=== PATIENT | female | born 1965 | race Caucasian/White ===

== ENCOUNTER → 2016-09-26 | Outpatient (CLI) | payer MEDICAID, BC ==
[2016-09-26 10:52] LABS: CH 30.8; HCT 39.9 % (34.0-46.0); HDW 2.13; HGB 13.1 gm/dL (11.4-16.0); MCH 30.6 pg (25.0-35.0); MCHC 32.7 g/dL (31.0-37.0); MCV 93.7 fL (80.0-100.0); Mean Platelet Volume 7.4; RBC 4.26 m/uL (3.80-5.40); RDW 12.8 % (11.5-15.5); WBC 6.9 k/uL (3.8-10.6)
[2016-09-26 11:22] LABS: ALT 36 U/L (9-52); AST 29 U/L (14-36); Alkaline Phosphatase 47 U/L (38-126); Anion Gap 13 mmol/L; Blood Urea Nitrogen 22 mg/dL (7-17); Calcium 9.9 mg/dL (8.4-10.2); Carbon Dioxide 25 mmol/L (22-30); Chloride 104 mmol/L (98-107); Cholesterol 190 mg/dL (<200); Glucose 83 mg/dL (74-99); HDL Cholesterol 60 mg/dL (40-60); Non-African American GFR(MDRD) >60 (>60 ml/min/1.73 sqM); Potassium 4.7 mmol/L (3.5-5.1); Sodium 142 mmol/L (137-145); Total Bilirubin 0.5 mg/dL (0.2-1.3); Total Protein 7.7 g/dL (6.3-8.2); Triglycerides 162 mg/dL (<150); Uric Acid 3.7 mg/dL (3.7-7.4)
== END | disposition home or self-care (01) ==
LOC: LABWHC1 09:08
PROVIDERS: ATTEND Family Medicine
DX: Z00.00 Encounter for general adult medical examination without abnormal findings (principal); E78.00 Pure hypercholesterolemia, unspecified; I10 Essential (primary) hypertension; M10.9 Gout, unspecified
CPT/HCPCS: 36415; 80053; 80061; 84550; 85027

== ENCOUNTER → 2016-10-19 | Outpatient (CLI) | payer MEDICAID, BC ==
--- NOTE | 2016-10-23 07:31 | MM ---
Reason for exam: screening (asymptomatic). Last mammogram was performed 1 year and 2 months ago. History: Took hormonal contraceptives for 26 years beginning at age 16. Physical Findings: A clinical breast exam by your physician is recommended on an annual basis and results should be correlated with mammographic findings. MG 3D Screening Mammo W/Cad Bilateral CC and MLO view(s) were taken. Prior study comparison: August 17, 2015, bilateral MG 3d screening mammo w/cad. November 17, 2010, bilateral digital screening mammo w/CAD. The breast tissue is heterogeneously dense. This may lower the sensitivity of mammography. Nodular asymmetry incompletely disperses anterior upper outer quadrant right breast. ASSESSMENT: Incomplete: need additional imaging evaluation, BI-RAD 0 RECOMMENDATION: Special view mammogram of the right breast. If lesion persists on supplemental views, image directed ultrasound is recommended. [facility] will attempt to contact patient to return for supplemental views and ultrasound if indicated.
== END | disposition home or self-care (01) ==
LOC: RADMAMWWP 06:59
PROVIDERS: ATTEND Family Medicine
DX: Z12.31 Encounter for screening mammogram for malignant neoplasm of breast (principal)
CPT/HCPCS: 77063; G0202

== ENCOUNTER → 2016-10-27 | Outpatient (CLI) | payer MEDICAID, BC ==
--- NOTE | 2016-10-27 08:42 | MM ---
Reason for exam: additional evaluation requested from abnormal screening. Last mammogram was performed less than 1 month ago. History: Took hormonal contraceptives for 26 years beginning at age 16. Physical Findings: Nurse did not find any significant physical abnormalities on exam. MG 3D Work Up W/Cad RT ML, spot compression CC, and spot compression MLO view(s) were taken of the right breast. Prior study comparison: October 19, 2016, bilateral MG 3d screening mammo w/cad. August 17, 2015, bilateral MG 3d screening mammo w/cad. There are scattered fibroglandular densities. No significant new findings when compared with previous films. These results were verbally communicated with the patient and result sheet given to the patient on 10/27/16. ASSESSMENT: Incomplete: need additional imaging evaluation, BI-RAD 0 RECOMMENDATION: Ultrasound of the right breast. (upper outer quadrant)
--- NOTE | 2016-10-27 08:44 | USB ---
Reason for exam: additional evaluation requested from abnormal screening. History: Took hormonal contraceptives for 26 years beginning at age 16. US Breast Workup Limited RT Right breast ultrasound demonstates no cystic or solid lesion seen. These results were verbally communicated with the patient and result sheet given to the patient on 10/27/16. ASSESSMENT: Negative, BI-RAD 1 RECOMMENDATION: Return to routine screening mammogram schedule for both breasts.
== END | disposition home or self-care (01) ==
LOC: RADMAMWWP 07:00
PROVIDERS: ATTEND Family Medicine
DX: R92.8 Other abnormal and inconclusive findings on diagnostic imaging of breast (principal)
CPT/HCPCS: 76642; G0206; G0279

== ENCOUNTER 2018-04-20 15:56 | Observation (INO) | payer MEDICAID, BC ==
[2018-04-20] MEDS ORDERED: ASPIRIN 81 MG PO STA (16:08)
[2018-04-20] MEDS ORDERED: NITROGLYCERIN OINT 1 INCH/GM PACKET TOPICAL STA (16:08)
--- NOTE | 2018-04-20 16:10 | ED ---
General Adult HPI - General Chief complaint: Chest Pain Stated complaint: Chest Pain Time Seen by Provider: 04/20/18 16:00 Source: patient, RN notes reviewed Mode of arrival: wheelchair Limitations: no limitations - History of Present Illness Initial comments: This is a 52-year-old female with past medical history significant for high blood pressure and high cholesterol. Patient also has a family history of heart disease. Patient states about an hour and a half ago she was watching some men do some work in her yard when she started having central chest pain which radiates to her back. Patient states she was not short of breath but she was mildly nauseated when it happened. Patient denies any diaphoresis. Patient denies any episode similar to this in the past. Patient denies headache patient denies numbness weakness. Patient denies any lightheadedness dizziness or near syncopal episode. Patient denies any palpitations. Patient states the pain is still there and is a pressure sensation. Patient states pressing on it does not produce the pain. Patient denies any leg edema or calf tenderness. Patient denies any abdominal pain patient denies nausea vomiting or diarrhea. - Related Data Home Medications Medication Instructions Recorded Confirmed Aspirin 81 mg PO DAILY 09/20/15 04/20/18 Lisinopril [Zestril] 20 mg PO BID 09/20/15 04/20/18 Multivitamins, Thera [Multivitamin] 1 tab PO DAILY 09/20/15 04/20/18 Simvastatin [Zocor] 20 mg PO HS 09/20/15 04/20/18 Naproxen Sodium [Aleve] 220 mg PO DAILY 04/20/18 04/20/18 Allergies Allergy/AdvReac Type Severity Reaction Status Date / Time No Known Allergies Allergy Verified 04/20/18 16:05 Review of Systems ROS Statement: Those systems with pertinent positive or pertinent negative responses have been documented in the HPI. ROS Other: All systems not noted in ROS Statement are negative. Past Medical History Past Medical History: Eye Disorder, Hyperlipidemia, Hypertension Additional Past Medical History / Comment(s): OTC GLASSES TO READ ONLY History of Any Multi-Drug Resistant Organisms: None Reported Past Surgical History: No Surgical Hx Reported Past Anesthesia/Blood Transfusion Reactions: No Reported Reaction Past Psychological History: No Psychological Hx Reported Smoking Status: Never smoker Past Alcohol Use History: None Reported Past Drug Use History: None Reported - Past Family History Mother Family Medical History: Cancer, Hyperlipidemia, Hypertension Additional Family Medical History / Comment(s): COLON CA Father Family Medical History: Hyperlipidemia, Hypertension General Exam - General Exam Comments Initial Comments: GENERAL: Patient is well-developed and well-nourished. Patient is nontoxic and well- hydrated and is in mild distress. ENT: Neck is soft and supple. No significant lymphadenopathy is noted. Oropharynx is clear. Moist mucous membranes. Neck has full range of motion without eliciting any pain. EYES: The sclera were anicteric and conjunctiva were pink and moist. Extraocular movements were intact and pupils were equal round and reactive to light. Eyelids were unremarkable. PULMONARY: Unlabored respirations. Good breath sounds bilaterally. No audible rales rhonchi or wheezing was noted. CARDIOVASCULAR: There is a regular rate and rhythm without any murmurs gallops or rubs. ABDOMEN: Soft and nontender with normal bowel sounds. No palpable organomegaly was noted. There is no palpable pulsatile mass. SKIN: Skin is clear with no lesions or rashes and otherwise unremarkable. NEUROLOGIC: Patient is alert and oriented x3. Cranial nerves II through XII are grossly intact. Motor and sensory are also intact. Normal speech, volume and content. Symmetrical smile. MUSCULOSKELETAL: Normal extremities with adequate strength and full range of motion. No lower extremity swelling or edema. No calf tenderness. LYMPHATICS: No significant lymphadenopathy is noted PSYCHIATRIC: Normal psychiatric evaluation. Normal interpersonal interactions appears functionally intact in deals appropriately with others. No signs of depression. No signs of anxiety. Limitations: no limitations Course Vital Signs 04/20/18 04/20/18 04/20/18 15:58 16:59 17:35 Temperature 97.8 F Pulse Rate 91 68 Pulse Rate [ 80 Team Guide ] Respiratory 18 18 Rate Blood Pressure 161/95 131/81 O2 Sat by Pulse 97 98 Oximetry Medical Decision Making - Medical Decision Making EKG shows normal sinus rhythm at 70 bpm DC interval 152 QRS is 74 QT interval 370 QTC is 4:30. Patient's EKG shows no ST segment elevation or depression or T wave abnormalities are noted. Patient got nitroglycerin and aspirin and after that she seemed to feel considerably better. I started a heparin on the patient because of her chest pain which was new to her any radiation of the pain or back. I spoke with Dr. Griggs agreed to admit the patient admitted the patient continued Nitropaste aspirin and heparin on the floor. I consult to cardiology and I wrote the orders. - Lab Data Result diagrams: 04/20/18 16:12 04/20/18 16:12 Lab Results 04/20/18 04/20/18 04/20/18 Range/Units 16:12 16:12 16:12 WBC 8.1 (3.8-10.6) k/uL RBC 4.22 (3.80-5.40) m/uL Hgb 13.1 (11.4-16.0) gm/dL Hct 39.0 (34.0-46.0) % MCV 92.6 (80.0-100.0) fL MCH 31.2 (25.0-35.0) pg MCHC 33.7 (31.0-37.0) g/dL RDW 13.2 (11.5-15.5) % Plt Count 254 (150-450) k/uL Neutrophils % 57 % Lymphocytes % 32 % Monocytes % 5 % Eosinophils % 2 % Basophils % 1 % Neutrophils # 4.6 (1.3-7.7) k/uL Lymphocytes # 2.6 (1.0-4.8) k/uL Monocytes # 0.4 (0-1.0) k/uL Eosinophils # 0.2 (0-0.7) k/uL Basophils # 0.1 (0-0.2) k/uL PT (9.0-12.0) sec INR (<1.2) APTT (22.0-30.0) sec Sodium 137 (137-145) mmol/L Potassium 3.8 (3.5-5.1) mmol/L Chloride 105 (98-107) mmol/L Carbon Dioxide 21 L (22-30) mmol/L Anion Gap 11 mmol/L BUN 23 H (7-17) mg/dL Creatinine 0.81 (0.52-1.04) mg/dL Est GFR (CKD-EPI)AfAm >90 (>60 ml/min/1.73 sqM) Est GFR (CKD-EPI)NonAf 83 (>60 ml/min/1.73 sqM) Glucose 98 (74-99) mg/dL Calcium 10.2 (8.4-10.2) mg/dL Magnesium 1.9 (1.6-2.3) mg/dL Total Bilirubin 0.3 (0.2-1.3) mg/dL AST 39 H (14-36) U/L ALT 45 (9-52) U/L Alkaline Phosphatase 50 (38-126) U/L Total Creatine Kinase 209 H (30-135) U/L CK-MB (CK-2) 1.6 (0.0-2.4) ng/mL CK-MB (CK-2) Rel Index 0.8 Troponin I <0.012 (0.000-0.034) ng/mL Total Protein 7.9 (6.3-8.2) g/dL Albumin 4.8 (3.5-5.0) g/dL 04/20/18 Range/Units 16:12 WBC (3.8-10.6) k/uL RBC (3.80-5.40) m/uL Hgb (11.4-16.0) gm/dL Hct (34.0-46.0) % MCV (80.0-100.0) fL MCH (25.0-35.0) pg MCHC (31.0-37.0) g/dL RDW (11.5-15.5) % Plt Count (150-450) k/uL Neutrophils % % Lymphocytes % % Monocytes % % Eosinophils % % Basophils % % Neutrophils # (1.3-7.7) k/uL Lymphocytes # (1.0-4.8) k/uL Monocytes # (0-1.0) k/uL Eosinophils # (0-0.7) k/uL Basophils # (0-0.2) k/uL PT 9.9 (9.0-12.0) sec INR 1.0 (<1.2) APTT 21.5 L (22.0-30.0) sec Sodium (137-145) mmol/L Potassium (3.5-5.1) mmol/L Chloride (98-107) mmol/L Carbon Dioxide (22-30) mmol/L Anion Gap mmol/L BUN (7-17) mg/dL Creatinine (0.52-1.04) mg/dL Est GFR (CKD-EPI)AfAm (>60 ml/min/1.73 sqM) Est GFR (CKD-EPI)NonAf (>60 ml/min/1.73 sqM) Glucose (74-99) mg/dL Calcium (8.4-10.2) mg/dL Magnesium (1.6-2.3) mg/dL Total Bilirubin (0.2-1.3) mg/dL AST (14-36) U/L ALT (9-52) U/L Alkaline Phosphatase (38-126) U/L Total Creatine Kinase (30-135) U/L CK-MB (CK-2) (0.0-2.4) ng/mL CK-MB (CK-2) Rel Index Troponin I (0.000-0.034) ng/mL Total Protein (6.3-8.2) g/dL Albumin (3.5-5.0) g/dL Critical Care Time Critical Care Time: Yes Total Critical Care Time: 35 Disposition Clinical Impression: Unstable angina pectoris Disposition: ADMITTED IP TO THIS HOSP Referrals: Buck Parmar MD [Primary Care Provider] - 1-2 days Time of Disposition: 17:38
[2018-04-20 16:18] LABS: Basophils # (A) 0.1 k/uL (0-0.2); Basophils % (A) 1 %; Eosinophils # (A) 0.2 k/uL (0-0.7); Eosinophils % (A) 2 %; HGB 13.1 gm/dL (11.4-16.0); Lymphocytes # (A) 2.6 k/uL (1.0-4.8); Lymphocytes % (A) 32 %; MCH 31.2 pg (25.0-35.0); MCHC 33.7 g/dL (31.0-37.0); MCV 92.6 fL (80.0-100.0); Mean Platelet Volume 7.5; Monocytes # (A) 0.4 k/uL (0-1.0); Monocytes % (A) 5 %; Neutrophils # (A) 4.6 k/uL (1.3-7.7); Neutrophils % (A) 57 %; Platelet Count 254 k/uL (150-450); RBC 4.22 m/uL (3.80-5.40); RDW 13.2 % (11.5-15.5); WBC 8.1 k/uL (3.8-10.6)
[2018-04-20 16:29] LABS: ALT 45 U/L (9-52); AST 39 U/L (14-36); Albumin 4.8 g/dL (3.5-5.0); Alkaline Phosphatase 50 U/L (38-126); Anion Gap 11 mmol/L; Blood Urea Nitrogen 23 mg/dL (7-17); Calcium 10.2 mg/dL (8.4-10.2); Carbon Dioxide 21 mmol/L (22-30); Chloride 105 mmol/L (98-107); Glucose 98 mg/dL (74-99); Magnesium 1.9 mg/dL (1.6-2.3); Potassium 3.8 mmol/L (3.5-5.1); Sodium 137 mmol/L (137-145); Total Bilirubin 0.3 mg/dL (0.2-1.3); Total Protein 7.9 g/dL (6.3-8.2)
[2018-04-20 16:35] LABS: Prothrombin Time 9.9 sec (9.0-12.0)
[2018-04-20 16:37] LABS: Partial Thromboplastin Time 21.5 sec (22.0-30.0)
[2018-04-20 16:39] LABS: Creatine Kinase 209 U/L (30-135)
--- NOTE | 2018-04-20 16:50 | XR ---
EXAMINATION TYPE: XR chest 2V DATE OF EXAM: 04/20/2018 COMPARISON: None INDICATION: Chest pain TECHNIQUE: Frontal and lateral views of the chest are obtained. FINDINGS: The heart size is normal. The pulmonary vasculature is normal. There may be a developing right lower lobe infiltrate. Clinical correlation is recommended. IMPRESSION: 1. Suggestion of a developing right lower lobe medial infiltrate with air bronchograms.
[2018-04-20 16:53] LABS: Creatine Kinase MB 1.6 ng/mL (0.0-2.4); Troponin I <0.012 ng/mL (0.000-0.034)
[2018-04-20] MEDS ORDERED: HEPARIN SODIUM,PORCINE 5,000 UNIT/ML 1 ML VIAL IV ONE (17:37)
[2018-04-20] MEDS ORDERED: NITROGLYCERIN SL TABS 0.4 MG TAB SUBLINGUAL PRN (17:39)
[2018-04-20] MEDS ORDERED: HEPARIN SOD,PORK IN 0.45% NACL 25,000 UNIT in 0.45% NACL 1 500ML.BAG IV SCH (17:45)
[2018-04-20] MEDS: NITROGLYCERIN OINT 1 INCH/GM PACKET TOPICAL SCH ×2 (19:26→23:35)
[2018-04-20] MEDS ORDERED: ATORVASTATIN 10 MG TAB PO SCH (21:45)
[2018-04-20] MEDS: LISINOPRIL 20 MG TAB PO SCH (21:47)
[2018-04-20] MEDS: ACETAMINOPHEN TAB 325 MG TAB PO PRN (21:48)
[2018-04-20 22:32] LABS: Creatine Kinase 159 U/L (30-135)
[2018-04-20 22:45] LABS: Troponin I <0.012 ng/mL (0.000-0.034)
[2018-04-21 00:54] LABS: Cholesterol 208 mg/dL (<200); HDL Cholesterol 59 mg/dL (40-60); LDL Cholesterol,Calculated 84 mg/dL (0-99); Triglycerides 324 mg/dL (<150)
[2018-04-21 04:59] LABS: Creatine Kinase 130 U/L (30-135)
[2018-04-21 05:11] LABS: Creatine Kinase MB 0.7 ng/mL (0.0-2.4); Troponin I <0.012 ng/mL (0.000-0.034)
[2018-04-21] MEDS: NITROGLYCERIN OINT 1 INCH/GM PACKET TOPICAL SCH (06:08)
[2018-04-21] MEDS: ACETAMINOPHEN TAB 325 MG TAB PO PRN (07:57)
[2018-04-21] MEDS ORDERED: ASPIRIN 325 MG TAB PO SCH (09:00)
[2018-04-21] MEDS ORDERED: NAPROXEN 250 MG TAB PO SCH (09:00)
[2018-04-21] MEDS: LISINOPRIL 20 MG TAB PO SCH (09:29)
[2018-04-21 09:46] VITALS: RESP 16; TEMP 98.5
--- NOTE | 2018-04-21 10:04 | CONS ---
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 She has hypertension and hyperlipidemia, sees Dr. Buck Parmar as an outpatient. She was standing and watching out the window with her and [id number] doing some work and then she felt midsternal discomfort, burning in nature, sharp, felt uncomfortable and came to the emergency room. Her symptoms have resolved. Troponins are normal. EKG is unremarkable. She is resting comfortably. She has a remote history of some reflux type symptoms. Has not had any previous stress test. She is asymptomatic at the time of my evaluation. The pain was very brief and does not seem anginal. PAST MEDICAL HISTORY: 1. Hypertension. 2. Hyperlipidemia. 3. No evidence of prior myocardial infarction. MEDICATIONS: Include Zocor 20 mg daily, Zestril 20 mg daily, aspirin 81 mg daily. No known drug allergies. PHYSICAL EXAMINATION: Blood pressure is 118/70, pulse rate is 70 per minute regular HEENT: Unremarkable. Fundus was not examined by me. Neck is supple. No JVD. I do not hear a carotid bruit. There is no thyromegaly. Heart exam reveals S1, S2 with a short systolic murmur audible at the base of the heart. No rub, murmur or gallop. Lungs are clear. Abdomen is soft, nontender. Lower extremities reveal normal pulses. No edema. Central nervous system is normal. EKG revealed sinus mechanism, no acute changes. LAB DATA: Revealed unremarkable troponins. IMPRESSION: 1. Atypical chest pain, probably gastroesophageal reflux type symptoms. 2. Hypertension under good control. 3. Hypercholesterolemia under good control with LDL of 84. RECOMMENDATIONS: I believe the pain is atypical but given her risk factors I am recommending that she should have a stress test and echocardiogram as an outpatient. I am recommending that she should have the test next week and gave her a prescription for this. She will have it done here through [facility]. MMODL / IJN: [id number] /
[2018-04-21] MEDS ORDERED: MULTIVITAMINS, THERA 1 EACH TAB PO SCH (12:00)
[2018-04-21 12:09] VITALS: BP 129/86; PULSE 73
--- NOTE | 2018-04-28 13:23 | DS ---
DISCHARGE SUMMARY HISTORY AND PHYSICAL AND DISCHARGE SUMMARY: DATE OF ADMISSION: 04/20/18. DATE LEFT AMA: 04/21/18. HOSPITAL COURSE: This patient presented to the ER with chest pain. When I came to the floor to see the patient, I was informed that the patient left earlier as she did not want to wait to be seen. She was admitted with chest pain. Seen by Dr. Barron Lozada, who ordered an outpatient stress test. The patient was never seen by me, not examined by me. For more details refer to the ER notes and Dr. Christie Lozada's notes. MMODL / IJN: [id number] /
== END 2018-04-21 12:09 | disposition left against medical advice (07) ==
LOC: EC 15:56 → 3OBS 17:42
PROVIDERS: ADMIT Hospitalist; ATTEND Hospitalist
DX: R07.89 Other chest pain (principal); R11.0 Nausea; I10 Essential (primary) hypertension; E78.5 Hyperlipidemia, unspecified; H57.9 Unspecified disorder of eye and adnexa; E78.00 Pure hypercholesterolemia, unspecified; Z79.82 Long term (current) use of aspirin; Z79.1 Long term (current) use of non-steroidal anti-inflammatories (NSAID); Z79.899 Other long term (current) drug therapy; Z80.0 Family history of malignant neoplasm of digestive organs; Z82.49 Family history of ischemic heart disease and other diseases of the circulatory system; Z83.49 Family history of other endocrine, nutritional and metabolic diseases
CPT/HCPCS: 99291 ×2; 96365 ×2; 96376 ×2; 96366 ×2; 36415; 93005; 80061; 80053; 82550 ×2; 82553 ×2; 83735; 84484 ×2; 85025; 85610; 85730 ×2; 71046; G0378 ×2; J1644 ×2

== ENCOUNTER → 2018-05-10 | Outpatient (CLI) | payer MEDICAID, BC ==
--- NOTE | 2018-05-10 11:39 | P.STRESS ---
- Stress Test Note Stress Test Results/Findings: Exam Performed: stress echo exercise Exam Date: 05/10/18 Reason for Exam: MURMUR Height: 5 ft 2 in Weight: 70.307 kg Protocol: LAINA Stage: 3 Duration of Exercise: 7:00 Resting Heart Rate: 74 Resting Blood Pressure: 122/76 Maximum Achieved Heart Rate: 156 Maximum Achieved Blood Pressure: 159/64 85% PMHR: 141 100% PMHR: 166 METS: 8.5 Technologist Comment: Stress Test Results/Findings: This is a 52-year-old female with history of hypertension, hypercholesterolemia and family history of ischemic heart disease being evaluated for cardiac status. Stress data: Baseline EKG showed sinus rhythm with normal AZ interval, QRS duration. Blood pressure at rest is 120/76 with pulse rate of 74. Patient walked on the Laina protocol for 7 minutes achieving a max pocket of 156 with blood pressure 159/64. EKGs taken during and after exercise did not reveal any significant changes from the baseline. Echo data: Baseline echo images showed normal wall motion and thickening. Exercise echo images showed augmentation of the wall motion and thickening in all the segments. Final impression: #1. Negative stress test #2. Negative stress echo.
--- NOTE | 2018-05-10 11:42 | ECHOF ---
Referral Reason:R01.01 Atypical chest pain MEASUREMENTS -------- HEIGHT: 157.5 cm WEIGHT: 70.3 kg BP: 108/67 RVIDd: 2.2 cm (< 3.3) IVSd: 0.9 cm (0.6 - 1.1) LVIDd: 4.5 cm (3.9 - 5.3) LVPWd: 0.8 cm (0.6 - 1.1) IVSs: 1.4 cm LVIDs: 2.6 cm LVPWs: 1.3 cm LA Diam: 3.3 cm (2.7 - 3.8) LAESV Index (A-L): 20.12 ml/m Ao Diam: 2.8 cm (2.0 - 3.7) AV Cusp: 1.9 cm (1.5 - 2.6) MV EXCURSION: 21.150 mm (> 18.000) MV EF SLOPE: 112 mm/s (70 - 150) EPSS: 0.8 cm MV E Kofi: 1.05 m/s MV DecT: 223 ms MV A Kofi: 0.73 m/s MV E/A Ratio: 1.43 RAP: 5.00 mmHg RVSP: 33.03 mmHg FINDINGS -------- Sinus rhythm. This was a technically good study. The left ventricular size is normal. Left ventricular wall thickness is normal. Overall left vent ricular systolic function is normal with, an EF between 60 - 65 %. The right ventricle is normal in size. Normal LA size by volume 22+/-6 ml/m2. The right atrium is normal in size. The aortic valve is trileaflet and appears structurally normal. The mitral valve is normal. Mild tricuspid regurgitation present. There is borderline pulmonary hypertension. The right ventr icular systolic pressure, as measured by Doppler, is 33.03mmHg. Trace/mild (physiologic) pulmonic regurgitation. The aortic root size is normal. Normal inferior vena cava with normal inspiratory collapse consistent with estimated right atrial pre ssure of 5 mmHg. There is no pericardial effusion. CONCLUSIONS -------- 1. Sinus rhythm. 2. This was a technically good study. 3. The left ventricular size is normal. 4. Left ventricular wall thickness is normal. 5. Overall left ventricular systolic function is normal with, an EF between 60 - 65 %. 6. The right ventricle is normal in size. 7. Normal LA size by volume 22+/-6 ml/m2. 8. The right atrium is normal in size. 9. The aortic valve is trileaflet and appears structurally normal. 10. The mitral valve is normal. 11. Mild tricuspid regurgitation present. 12. There is borderline pulmonary hypertension. 13. The right ventricular systolic pressure, as measured by Doppler, is 33.03mmHg. 14. Trace/mild (physiologic) pulmonic regurgitation. 15. The aortic root size is normal. 16. Normal inferior vena cava with normal inspiratory collapse consistent with estimated right atrial pressure of 5 mmHg. 17. There is no pericardial effusion. [employer]: Angélica Major RDCS
== END ==
LOC: RADNMMAIN 10:31
PROVIDERS: ATTEND Internal Medicine Interventional Cardiology
DX: I07.1 Rheumatic tricuspid insufficiency (principal); I37.1 Nonrheumatic pulmonary valve insufficiency; I27.20 Pulmonary hypertension, unspecified; R01.1 Cardiac murmur, unspecified
CPT/HCPCS: 93306; 93351

== ENCOUNTER → 2018-06-03 | Outpatient (CLI) | payer MEDICAID, BC ==
--- NOTE | 2018-06-04 13:46 | MM ---
Reason for exam: screening (asymptomatic). Last mammogram was performed 1 year and 7 months ago. History: Took hormonal contraceptives for 26 years beginning at age 16. Physical Findings: A clinical breast exam by your physician is recommended on an annual basis and results should be correlated with mammographic findings. MG 3D Screening Mammo W/Cad Bilateral CC and MLO view(s) were taken. Prior study comparison: October 27, 2016, right breast MG 3d work up w/cad RT. October 19, 2016, bilateral MG 3d screening mammo w/cad. The breast tissue is heterogeneously dense. This may lower the sensitivity of mammography. No suspicious abnormality. No significant changes when compared with prior studies. ASSESSMENT: Negative, BI-RAD 1 RECOMMENDATION: Routine screening mammogram of both breasts in 1 year.
== END ==
LOC: RADMAMWWP 07:12
PROVIDERS: ATTEND Family Medicine
DX: Z12.31 Encounter for screening mammogram for malignant neoplasm of breast (principal)
CPT/HCPCS: 77063; 77067

== ENCOUNTER → 2019-06-12 | Outpatient (CLI) | payer BC ==
[2019-06-12 08:17] LABS: HCT 36.1 % (34.0-46.0); HGB 12.1 gm/dL (11.4-16.0); MCH 31.5 pg (25.0-35.0); MCHC 33.5 g/dL (31.0-37.0); MCV 93.9 fL (80.0-100.0); Mean Platelet Volume 7.2; Platelet Count 234 k/uL (150-450); RBC 3.85 m/uL (3.80-5.40); RDW 13.2 % (11.5-15.5); WBC 6.1 k/uL (3.8-10.6)
[2019-06-12 12:15] LABS: African American GFR (CKD) 83.4 (60.0-200.0); Albumin 4.7 g/dL (3.80-4.90); Albumin/Globulin Ratio 2.47 (1.60-3.17); Anion Gap 8.9 mmol/L (4.00-12.00); BUN/Creat Ratio 24.44 Ratio (12.00-20.00); Calcium 9.6 mg/dL (8.7-10.3); Carbon Dioxide 26.1 mmol/L (21.6-31.8); Chol/HDL Ratio 3.06; Globulin 1.9 g/dL (1.6-3.3); Potassium 4.2 mmol/L (3.5-5.5); Total Bilirubin 0.5 mg/dL (0.2-1.2); Total Protein 6.6 g/dL (6.2-8.2)
== END | disposition home or self-care (01) ==
LOC: LABWHC1 07:41
PROVIDERS: ATTEND Family Medicine
DX: Z00.00 Encounter for general adult medical examination without abnormal findings (principal); Z13.220 Encounter for screening for lipoid disorders
CPT/HCPCS: 36415; 80053; 80061; 85027

== ENCOUNTER → 2019-09-09 | Outpatient (CLI) | payer BC ==
--- NOTE | 2019-09-09 09:44 | MM ---
Reason for exam: screening (asymptomatic). Last mammogram was performed 1 year and 3 months ago. History: Took hormonal contraceptives for 26 years beginning at age 16. Physical Findings: A clinical breast exam by your physician is recommended on an annual basis and results should be correlated with mammographic findings. MG 3D Screening Mammo W/Cad Bilateral CC and MLO view(s) were taken. Prior study comparison: June 03, 2018, bilateral MG 3d screening mammo w/cad. October 27, 2016, right breast MG 3d work up w/cad RT. The breast tissue is heterogeneously dense. This may lower the sensitivity of mammography. Stable benign calcifications. There is no discrete abnormality. No significant changes when compared with prior studies. ASSESSMENT: Benign, BI-RAD 2 RECOMMENDATION: Routine screening mammogram of both breasts in 1 year.
== END | disposition home or self-care (01) ==
LOC: RADMAMWWP 07:14
PROVIDERS: ATTEND Family Medicine
DX: Z12.31 Encounter for screening mammogram for malignant neoplasm of breast (principal)
CPT/HCPCS: 77063; 77067

== ENCOUNTER → 2020-10-29 | Outpatient (CLI) | payer MEDICAID, BC ==
[2020-10-29 16:04] LABS: African American GFR (CKD) 82.3 (60.0-200.0); Albumin 4.8 g/dL (3.80-4.90); Albumin/Globulin Ratio 2.29 (1.60-3.17); Anion Gap 10.9 mmol/L (4.00-12.00); BUN/Creat Ratio 25.56 Ratio (12.00-20.00); Calcium 10.4 mg/dL (8.7-10.3); Carbon Dioxide 25.1 mmol/L (21.6-31.8); Chol/HDL Ratio 3.29; Globulin 2.1 g/dL (1.6-3.3); LDL Cholesterol,Calculated 87.4 mg/dL (0.0-131.0); Potassium 4.2 mmol/L (3.5-5.5); Total Bilirubin 0.4 mg/dL (0.2-1.2); Total Protein 6.9 g/dL (6.2-8.2); VLDL Calculation 56.6 mg/dL (5.00-40.00)
== END | disposition home or self-care (01) ==
LOC: LABWHC1 08:07
PROVIDERS: ATTEND Family Medicine
DX: E78.00 Pure hypercholesterolemia, unspecified (principal); I10 Essential (primary) hypertension
CPT/HCPCS: 36415; 80053; 80061

== ENCOUNTER → 2021-01-31 | Outpatient (CLI) | payer MEDICAID, BC ==
--- NOTE | 2021-02-01 10:15 | MM ---
Reason for exam: screening (asymptomatic). Last mammogram was performed 1 year and 5 months ago. History: Took hormonal contraceptives for 26 years beginning at age 16. Physical Findings: A clinical breast exam by your physician is recommended on an annual basis and results should be correlated with mammographic findings. MG 3D Screening Mammo W/Cad Bilateral CC and MLO view(s) were taken. Prior study comparison: September 09, 2019, bilateral MG 3d screening mammo w/cad. June 03, 2018, bilateral MG 3d screening mammo w/cad. The breast tissue is heterogeneously dense. This may lower the sensitivity of mammography. ASSESSMENT: Negative, BI-RAD 1 RECOMMENDATION: Routine screening mammogram of both breasts in 1 year.
== END | disposition home or self-care (01) ==
LOC: RADMAMWWP 07:16
PROVIDERS: ATTEND Family Medicine
DX: Z12.31 Encounter for screening mammogram for malignant neoplasm of breast (principal)
CPT/HCPCS: 77063; 77067

== ENCOUNTER → 2022-11-30 | Outpatient (CLI) | payer MEDICAID, BC ==
[2022-11-30 16:04] LABS: ALT 27 U/L (8-44); AST 28 U/L (13-35); African American GFR (CKD) 70.6 (60.0-200.0); Albumin/Globulin Ratio 2.15 (1.60-3.17); Alkaline Phosphatase 65 U/L (41-126); BUN/Creat Ratio 21.68 Ratio (12.00-20.00); Blood Urea Nitrogen 21.9 mg/dL (9.0-27.0); Calcium 10.9 mg/dL (8.7-10.3); Carbon Dioxide 26.3 mmol/L (20.0-27.5); Chloride 105 mmol/L (96-109); Chol/HDL Ratio 3.72 Ratio; Globulin 2.3 g/dL (1.6-3.3); Glucose 99 mg/dL (70-110); LDL Cholesterol,Calculated 119.5 mg/dL (0.0-131.0); Non-African American GFR(CKD) 60.9 (60.0-200.0); Potassium 4.8 mmol/L (3.5-5.5); Sodium 144 mmol/L (135-145); Total Protein 7.3 g/dL (6.2-8.2)
[2022-11-30 16:11] LABS: HCT 41.9 % (37.2-46.3); HGB 13.4 g/dL (12.0-15.0); MCH 30.8 pg (27.0-32.0); MCV 96.3 fL (80.0-97.0); Mean Platelet Volume 10.9 fL (9.5-12.2); NRBC Per 100 WBC 0 /100 WBCS (0.0-0.0); Platelet Count 271 X 10*3/uL (140-440); RBC 4.35 X 10*6/uL (4.10-5.20); RDW 13.2 % (11.5-14.5); WBC 5.36 X 10*3/uL (4.50-10.00)
== END | disposition home or self-care (01) ==
LOC: LABWHC1 07:34
PROVIDERS: ATTEND Family Medicine
DX: Z00.00 Encounter for general adult medical examination without abnormal findings (principal); E78.00 Pure hypercholesterolemia, unspecified
CPT/HCPCS: 36415; 80053; 80061; 85027

== ENCOUNTER → 2023-12-03 | Outpatient (CLI) | payer MEDICAID, BC ==
[2023-12-03 11:45] LABS: ALT 23 U/L (8-44); AST 24 U/L (13-35); Albumin 4.8 g/dL (3.8-4.9); Albumin/Globulin Ratio 2.18 Ratio (1.60-3.17); Alkaline Phosphatase 61 U/L (41-126); BUN/Creat Ratio 24.22 Ratio (12.00-20.00); Blood Urea Nitrogen 21.8 mg/dL (9.0-27.0); Calcium 10.1 mg/dL (8.7-10.3); Carbon Dioxide 23.1 mmol/L (21.6-31.8); Chloride 104 mmol/L (96-109); Chol/HDL Ratio 4.44 Ratio; Globulin 2.2 g/dL (1.6-3.3); Glucose 103 mg/dL (70-110); Potassium 4.2 mmol/L (3.5-5.5); Sodium 140 mmol/L (135-145); Total Bilirubin 0.4 mg/dL (0.3-1.2)
== END | disposition home or self-care (01) ==
LOC: LABWHC1 07:38
PROVIDERS: ATTEND Family Medicine
DX: E78.00 Pure hypercholesterolemia, unspecified (principal)
CPT/HCPCS: 36415; 80053; 80061; 83721

== ENCOUNTER 2024-03-12 06:28 | Day surgery (SDC) | payer MEDICAID, BC ==
[~2024-03-12 06:28] MED LIST: LIDOCAINE 1% (10MG/ML) FOR IV START INTRADERMA PRN
[2024-03-12 07:07] VITALS: TEMP 97
[2024-03-12] MEDS: IV FLUID CONTINUATION 1,000 ML IV ONE (07:08)
[2024-03-12] MEDS: LACTATED RINGERS 1,000 ML IV SCH (07:09)
[2024-03-12] MEDS: ONDANSETRON 4 MG/2 ML VIAL IVP STA (07:10)
[2024-03-12] MEDS ORDERED: PROPOFOL 10 MG/ML 20 ML VIAL IV ONE (07:25)
--- NOTE | 2024-03-12 07:44 | P.PCN ---
Date of Procedure: 03/12/24 Procedure(s) Performed: BRIEF HISTORY: Patient is a 58-year-old pleasant white female scheduled for an elective colonoscopy as a part of screening for colon cancer. Mom was diagnosed with colon cancer at age 60 PROCEDURE PERFORMED: Colonoscopy. PREOPERATIVE DIAGNOSIS: Screening for colon cancer and family history of colon cancer. IV sedation per Anesthesia. PROCEDURE: After informed consent was obtained, the patient, was brought into the endoscopy unit. IV sedation was administered by Anesthesia under continuous monitoring. Digital rectal examination was normal. Initially the Olympus CF-160 flexible video colonoscope was then inserted in the rectum, gradually advanced into the cecum without any difficulty. Careful examination was performed as the scope was gradually being withdrawn. Ileocecal valve and the appendiceal orifice were visualized and appeared normal. Prep was excellent. Mucosa of the cecum, ascending colon, transverse colon, descending colon, sigmoid colon, and rectum appeared normal. Retroflexion was performed in the rectum and no lesions were seen. The patient tolerated the procedure well. IMPRESSION: Normal-appearing colon from rectum to cecum no evidence of colorectal neoplasia. RECOMMENDATIONS: Findings of this examination were discussed with the patient as well as her family. She was advised to have repeat screening colonoscopy in 5 years because of the family history of colon cancer.
[2024-03-12 08:12] VITALS: BP 122/74; PULSE 50; RESP 18
== END 2024-03-12 08:15 | disposition home or self-care (01) ==
LOC: ORWHC2ENDO 06:28
PROVIDERS: ATTEND Internal Medicine Gastroenterology
DX: Z12.11 Encounter for screening for malignant neoplasm of colon (principal); I10 Essential (primary) hypertension; E78.5 Hyperlipidemia, unspecified; Z80.0 Family history of malignant neoplasm of digestive organs; Z79.899 Other long term (current) drug therapy
CPT/HCPCS: J2405; J2704; G0105; 45378

== ENCOUNTER → 2025-02-20 | Outpatient (CLI) | payer MEDICAID, BC ==
[2025-02-20 10:17] LABS: HCT 37.8 % (37.2-46.3); HGB 12.3 g/dL (12.0-15.0); MCH 30.7 pg (27.0-32.0); MCHC 32.5 g/dL (32.0-37.0); MCV 94.3 FL (80.0-97.0); NRBC Per 100 WBC 0 X 10*3/uL (0.00-0.01); Platelet Count 238 X 10*3/uL (140-440); RBC 4.01 X 10*6/uL (4.10-5.20); RDW 13.6 % (11.5-14.5); WBC 5.24 X 10*3/uL (4.50-10.00)
[2025-02-20 10:29] LABS: ALT 28 U/L (8-44); AST 31 U/L (13-35); Albumin 4.6 g/dL (3.8-4.9); Albumin/Globulin Ratio 2.30 Ratio (1.60-3.17); Alkaline Phosphatase 50 U/L (41-126); Anion Gap 11.10 mmol/L (4.00-12.00); BUN/Creat Ratio 25.11 Ratio (12.00-20.00); Blood Urea Nitrogen 22.6 mg/dL (9.0-27.0); Calcium 9.5 mg/dL (8.7-10.3); Carbon Dioxide 24.9 mmol/L (21.6-31.8); Chloride 106 mmol/L (96-109); Cholesterol 200.00 mg/dL (0.00-200.00); Globulin 2.0 g/dL (1.6-3.3); Glucose 99 mg/dL (70-110); HDL Cholesterol 53.50 mg/dL (40.00-60.00); LDL Cholesterol,Calculated 107.5 mg/dL (0.0-131.0); Potassium 4.4 mmol/L (3.5-5.5); Sodium 142 mmol/L (135-145); Total Protein 6.6 g/dL (6.2-8.2); Triglycerides 195.00 mg/dL (0.00-149.00); VLDL Calculation 39.00 mg/dL (5.00-40.00)
== END | disposition home or self-care (01) ==
LOC: LABWHC1 07:40
PROVIDERS: ATTEND Family Medicine
DX: E78.00 Pure hypercholesterolemia, unspecified (principal)
CPT/HCPCS: 36415; 80053; 80061; 85027